=== PATIENT | female | born 1950 | race Caucasian/White ===

== ENCOUNTER 2017-12-08 08:36 | Day surgery (SDC) | payer MEDICARE, OTHER, MEDICAID ==
[2017-12-08] MEDS ORDERED: PROPOFOL 40 ML (10:08)
[2017-12-08] MEDS ORDERED: LIDOCAINE 2% (SDV) 5 ML INJ (10:08)
== END 2017-12-08 12:19 | disposition home or self-care (01) ==
LOC: GIL 08:36
DX: K92.1 Melena (principal); K21.9 Gastro-esophageal reflux disease without esophagitis; K29.60 Other gastritis without bleeding; K57.90 Diverticulosis of intestine, part unspecified, without perforation or abscess without bleeding; K64.8 Other hemorrhoids; I12.9 Hypertensive chronic kidney disease with stage 1 through stage 4 chronic kidney disease, or unspecified chronic kidney disease; N18.9 Chronic kidney disease, unspecified
CPT/HCPCS: 43239; 88305